=== PATIENT | female | born 1970 | race Caucasian/White ===

== ENCOUNTER 2019-10-23 04:16 | Emergency (ER) | payer OTHER, SELFPAY ==
--- NOTE | ~2019-10-23 | XR_ITS ---
EXAMINATION: XR chest 1V portable EXAM DATE: 10/23/2019 04:57 INDICATION: Short of breath. TECHNIQUE: Portable AP frontal chest x-ray was obtained. Comparison is made to prior examination from 02/08/2017. FINDINGS: The lungs are clear. There are no pleural effusions. The cardiomediastinal silhouette is within normal limits. There is no pneumothorax suspected. The bones and soft tissues are unremarkab le. IMPRESSION: Normal chest x-ray exam. Reviewed, dictated and finalized at location A. IMPRESSION: Normal chest x-ray exam.
[2019-10-23 05:03] LABS: Basophils Percent Auto 0.5 % (0.2-1.2); Eosinophils Absolute Auto 0.1 K/mm3 (0-0.3); Eosinophils Percent Auto 2.3 % (0-4.4); Hemoglobin 12.4 g/dL (12.0-15.0); Immature Granulocyte Absolute 0.01 K/mm3 (0.00-0.031); Immature Granulocyte Percent A 0.2 % (0-0.5); Lymphocytes Absolute Auto 1.34 K/mm3 (0.9-3.2); Lymphocytes Percent Auto 22.1 % (18.3-44.2); Mean Corpuscular HGB Conc 31.8 g/dl (32-36); Mean Corpuscular Hemoglobin 28.4 pg (26-34); Mean Corpuscular Volume 89.4 fl (80-100); Mean Platelet Volume 9.2 fl (7.4-10.4); Monocytes Absolute Auto 0.6 K/mm3 (0.1-0.6); Monocytes Percent Auto 9.1 % (2.6-8.5); Neutrophils Percent Auto 65.8 % (45.5-73.1); Platelet Count Result 240 k/mm3 (150-375); Red Blood Count 4.36 M/mm3 (4.2-5.4); Red Cell Distribution Width 14.2 % (11.5-14.5); White Blood Count 6.1 K/mm3 (4.5-10.0)
[2019-10-23 05:16] LABS: Anion Gap 5 mmol/L (8-16); Blood Urea Nitrogen 13 mg/dL (7-17); Carbon Dioxide 31 mmol/L (22-30); Chloride 99 mmol/L (98-107); Estimated CRCL calculation 81 ml/min; Estimated Glomerular Filt Rate > 60; Glucose 130 mg/dL (65-105); Potassium 4.3 mmol/L (3.4-5.0); Sodium 135 mmol/L (137-145)
[2019-10-23] MEDS: CLINDAMYCIN 600 MG/NS 50 ML 600 MG/50 ML PIGGYBACK 100 MG IVPB (05:27)
--- NOTE | 2019-10-23 05:32 | ED.SOB ---
HPI - SOB/Dyspnea General Chief Complaint: Shortness of Breath/Dyspnea Stated Complaint: HARD TO BREATHE; SHOULDER BLADE PAINS Time Seen by Provider: 10/23/19 04:32 Source: patient Mode of arrival: ambulatory Limitations: no limitations History of Present Illness HPI Narrative: 49-year-old IV heroin user here with complaints of shortness of breath, pain between the shoulder blade occasionally. Also complains of abscess on the left thigh for past 1 week. She denies any fever or chills. She states that she smokes about a pack of cigarettes a day. Patient also mentions that she had been through detox and rehab program but she relapsed several times and started interested anymore. MD elicited complaint: shortness of breath and chest pain Onset (ago): week(s) (1) Timing: constant Severity: mild Exacerbating factors: nothing Known history of: COPD Treatment prior to arrival: none Related Data Home oxygen amount: none Allergies Allergy/AdvReac Type Severity Reaction Status Date / Time No Known Allergies Allergy Unverified 09/30/15 07:12 Review of Systems Review of Systems: All systems reviewed & are unremarkable except as noted in HPI and below Constitutional: Constitutional: Reports no additional constitutional complaints Eyes: Eyes: Reports no additional eye complaints ENT: Reports as per HPI Cardiovascular: Cardiovascular: Reports no additional cardiovascular complaints Respiratory: Respiratory: Reports no additional respiratory complaints Gastrointestinal: Gastrointestinal: Reports no additional gastrointestinal complaints Musculoskeletal: Musculoskeletal: Reports no additional musculoskeletal complaints Exam Narrative: Exam Narrative: GENERAL: Well-appearing, well-nourished, and in no acute distress. HEAD: Normocephalic, atraumatic. EYES: PERRLA and EOMI. ENT: Nares clear, no rhinorrhea or epistaxis. Mucous membranes moist. NECK: Supple. CHEST: Clear to auscultation. No respiratory distress. HEART: Regular rate and rhythm. No murmur heard. . ABDOMEN: Soft, nontender, nondistended, normal active bowel sounds. EXTREMITIES: Normal range of motion. No edema. has abscess on the left thigh about 4 cms with surrounding erythema SKIN: Warm, dry, no rash. NEURO: No focal deficits. Alert and oriented x3. PSYCH: Normal mood and affect. Procedures Abscess I/D lower extremity: Date of Incision: 10/23/19 Time of Incision: 05:15 Side (if applicable): left Technique: incised with #11 blade Amount of fluid expressed (mL): 10 Irrigation: No Packing used?: none MDM - SOB/Dyspnea Lab Data Result diagrams: 10/23/19 04:56 10/23/19 04:57 Labs: Lab Results 10/23/19 10/23/19 Range/Units 04:56 04:57 WBC 6.1 (4.5-10.0) K/mm3 RBC 4.36 (4.2-5.4) M/mm3 Hgb 12.4 (12.0-15.0) g/dL Hct 39.0 (37.0-47.0) % MCV 89.4 (80-100) fl MCH 28.4 (26-34) pg MCHC 31.8 L (32-36) g/dl RDW 14.2 (11.5-14.5) % Plt Count 240 (150-375) k/mm3 MPV 9.2 (7.4-10.4) fl Immature Gran % (Auto) 0.2 (0-0.5) % Neut % (Auto) 65.8 (45.5-73.1) % Lymph % (Auto) 22.1 (18.3-44.2) % [place] % (Auto) 9.1 H (2.6-8.5) % Eos % (Auto) 2.3 (0-4.4) % Baso % (Auto) 0.5 (0.2-1.2) % Lymph # (Auto) 1.34 (0.9-3.2) K/mm3 [place] # (Auto) 0.6 (0.1-0.6) K/mm3 Eos # (Auto) 0.1 (0-0.3) K/mm3 Baso # (Auto) 0.0 (0.0-0.1) K/mm3 Abs Immat Gran (auto) 0.01 (0.00-0.031) K/mm3 Absolute Neuts (auto) 4.0 (1.3-6.7) K/mm3 Absolute Nucleated RBC 0.0 (0.0-0.012) K/mm3 Nucleated RBC % 0.0 (0.0-0.2) % Sodium 135 L (137-145) mmol/L Potassium 4.3 (3.4-5.0) mmol/L Chloride 99 (98-107) mmol/L Carbon Dioxide 31 H (22-30) mmol/L Anion Gap 5 L (8-16) mmol/L BUN 13 (7-17) mg/dL Creatinine 0.70 (0.7-1.0) mg/dL Estim Creat Clear Calc 81 ml/min Estimated GFR > 60 (59 - ) Glucose 130 H (65-105) mg/dL
--- NOTE | 2019-10-23 09:37 | ECG_ITS ---
Measurements Intervals [place] Rate: 86 P: 53 VT: 181 QRS: -30 QRSD: 98 T: 46 QT: 355 QTc: 427 Interpretive Statements SINUS RHYTHM INCOMPLETE RIGHT BUNDLE BRANCH BLOCK BORDERLINE ECG Electronically Signed On 10-23-2019 9:43:36 CDT by Calvin Garcia D.O.
== END 2019-10-23 06:09 | disposition home or self-care (01) ==
PROVIDERS: Emergency Provider Family Medicine
DX: L02.416 Cutaneous abscess of left lower limb (principal); F11.90 Opioid use, unspecified, uncomplicated; R07.9 Chest pain, unspecified; F17.210 Nicotine dependence, cigarettes, uncomplicated
CPT/HCPCS: 10060; 36415; 71045; 80048; 85025; 93005; 96374; 99284

== ENCOUNTER 2023-04-27 07:29 | Outpatient (CLI) | payer OTHER, SELFPAY ==
--- NOTE | 2023-04-27 | ECG_ITS ---
Measurements Intervals [place] Rate: 85 P: 58 VT: 195 QRS: -24 QRSD: 110 T: 39 QT: 363 QTc: 434 Interpretive Statements SINUS RHYTHM NORMAL ECG COMPARED TO ECG 10/23/2019 04:34:06 NO SIGNIFICANT CHANGES Electronically Signed On 04-27-2023 8:47:51 CDT by Calvin Garcia D.O.
--- NOTE | 2023-04-27 | ECHO_ITS ---
Patient Info Name: Emily Temple Age: 52 years : 1970 Gender: Female Ht: 67 in Wt: 214 lbs BSA: 2.18 m2 HR: 92 bpm BP: 168 / 117 mmHg Heart Rhythm: Sinus Rhythm Technical Quality: Fair Exam Date: 04/27/2023 7:57 AM Exam Location: Echo Lab Patient Status: Outpatient Admit Date: 04/27/2023 Staff Ordering Physician: Paulo Lyons MD Chief Optometry Service: Attending Provider: Paulo Lyons MD Referring Physician: Serena LUNA; Exam Type: CA echo doppler color flow Study Info Indications R07.9 - Chest pain, unspecified Complete two-dimensional, color flow and Doppler transthoracic echocardiogram is performed. Summary 1. Complete two-dimensional, color flow and Doppler transthoracic echocardiogram is performed. 2. Left ventricular chamber dimension is normal. 3. Left ventricular systolic function is normal, estimated at 55-60%. 4. The left ventricular diastolic function is grade I diastolic dysfunction. 5. Right ventricular systolic function is normal. 6. No significant valvular disease. Left Ventricle Left ventricular chamber dimension is normal. Left ventricular systolic function is normal, estimated at 55-60%. There is no increased left ventricular wall thickness. The left ventricular diastolic function is grade I diastolic dysfunction. Right Ventricle Right ventricular chamber dimension is normal. Right ventricular systolic function is normal. Left Atria Left atrial chamber dimension is normal. Right Atria Right atrial chamber dimension is normal. Atrial Septum Intact interatrial septum visualized by color flow imaging. Aortic Valve The aortic valve is probable trileaflet. There is no aortic valve stenosis. There is no aortic valve regurgitation. There is mild aortic valve calcification. Pulmonic Valve The pulmonic valve is not well visualized. Mitral Valve There is trace mitral valve regurgitation. Tricuspid Valve There is trace tricuspid valve regurgitation. Pericardium/Pleural There is no pericardial effusion. Inferior Vena Cava Normal inferior vena cava with >50% collapse upon inspiration consistent with normal right atrial pressure, 3 mmHg. Aorta The aortic root size at the sinus of Valsalva is normal. Left Ventricular Outflow Tract Name Value Normal LVOT 2D LVOT Diameter 2.0 cm LVOT Doppler LVOT Peak Gradient 5 mmHg LVOT Mean Gradient 3 mmHg LVOT VTI 23 cm LVOT VTI/AV VTI Ratio 0.7 LVOT Stroke Volume 68 ml LVOT CO 5.9 l/min LVOT CI 2.7 l/min/m2 Pulmonic Valve Name Value Normal PV Doppler PV Peak Gradient 4 mmHg Mitral Valve Name Value Normal
--- NOTE | ~2023-04-27 | XR_ITS ---
Clinical Indication: Chest pain PA and lateral views of the chest: Comparison: 10/23/2019 Findings: The lungs are clear, without evidence of focal consolidation or pleural effusion. Cardiome diastinal silhouette is within normal limits. Bones and soft tissues are unremarkable. Impression: Normal chest. Reviewed, dictated and finalized at location . Impression: Normal chest.
== END 2023-04-27 07:30 | disposition home or self-care (01) ==
PROVIDERS: Visit Provider Internal Medicine
DX: R07.9 Chest pain, unspecified (principal); R06.09 Other forms of dyspnea
CPT/HCPCS: 71046; 93005; 93306

== ENCOUNTER 2024-06-09 00:03 | Emergency (ER) | payer OTHER, SELFPAY ==
[2024-06-09] VITALS (9 sets, daily range): BP systolic 138–147; BP diastolic 84–89; PULSE 76–108; RESP 12–26; TEMP 36.1; O2SAT 94–99
--- NOTE | ~2024-06-09 | CT_ITS ---
CTA chest PE abdomen pel Ordering provider: Arsen Monsivais MD History: . chest pain, abdominal pain, eval PE . Comparison: None. Technique: CT angiogram chest was performed following timed intravenous injection of contrast. Thin s lice axial images and reformatted coronal images were obtained. Three dimensional reformatted images of the chest were also obtained using a [employer] workstation. Also, CT of the abdomen and pelvis was pe rformed with IV contrast. . Automated exposure control and iterative reconstruction technique were e mployed. The dose-length product was 2134.44 mGy-cm. 100 mL Omnipaque 350 was given IV. FINDINGS: CHEST: --PULMONARY ARTERIES: No pulmonary embolus. --VISUALIZED THORACIC INLET: Normal. --MEDIASTINUM: Aorta/coronary arteries: The thoracic aorta is normal. Heart/other: The heart is not enlarged. Lymph nodes: No mediastinal or hilar adenopathy. --LUNGS: No pulmonary nodules or masses. No infiltrates or effusions. No pneumothorax. --MUSCULOSKELETAL: Bones: Age appropriate degenerative changes of the spine. Old healed fracture in the right hemithorax is noted. Superficial soft tissues: The superficial soft tissues are normal. ABDOMEN/PELVIS: --MUSCULOSKELETAL: Superficial soft tissues: The superficial soft tissues are normal. Bones: Age appropriate degenerative changes of the spine. --UPPER ABDOMINAL ORGANS: Liver: Borderline hepatomegaly. Gallbladder: Status post cholecystectomy. Slightly prominent CBD. Spleen: Normal. Stomach/duodenum: Normal. Pancreas: Normal. Adrenals: Normal. Kidneys: lobation is seen bilaterally. --PELVIC ORGANS: The bladder is underfilled. No bladder stones. --BOWEL AND MESENTERY: Colon: No evidence of diverticulitis. Normal appendix. Small Bowel: Normal. No obstruction. Peritoneum/mesentery: No free air or free fluid. No mesenteric lymphadenopathy. --RETROPERITONEUM: Mild atheromatous disease of the abdominal aorta. No retroperitoneal lymphadenop athy. IMPRESSION: CHEST: 1. No pulmonary embolism. 2. No acute cardiopulmonary pathology. ABDOMEN/PELVIS: 1. No evidence of appendicitis, diverticulitis or intestinal obstruction. Reviewed, dictated and finalized at location A.
--- NOTE | ~2024-06-09 | XR_ITS ---
XR chest 2V Ordering provider: Arsen Monsivais MD History: 54 years Female with . SOB, chest pain . Comparison: None. FINDINGS: MEDIASTINUM: The cardiac silhouette is not enlarged. LUNGS: No , effusions or pneumothorax. Small opacity in the left lung base medially is seen which may indicate focal pneumonia. Follow-up ad vised. OTHER: No free air under the diaphragm. IMPRESSION: Possible focal pneumonia in the left lung base medially. Follow-up and clinical correlation advised. Reviewed, dictated and finalized at location A.
--- NOTE | 2024-06-09 00:05 | ECG_ITS ---
Test Date: 2024-06-09 00:21:53 Measurements Intervals [place] Rate: 93 P: 63 DE: 180 QRS: -59 QRSD: 92 T: 65 QT: 341 QTc: 424 Interpretive Statements SINUS RHYTHM PATTERN CONSISTENT WITH PULMONARY DISEASE INCOMPLETE RIGHT BUNDLE BRANCH BLOCK [90+ ms QRS DURATION, TERMINAL R IN V1/V2, 40+ ms S IN I/aVL/V4/V5/V6] LEFT ANTERIOR FASCICULAR BLOCK [QRS AXIS <= -45, QR IN I, RS IN II] POSSIBLE SEPTAL MYOCARDIAL INFARCTION , OF INDETERMINATE AGE [30 ms Q WAVE IN V1/V2] No previous ECG available for comparison Electronically Signed On 06-09-2024 16:04:26 CDT by Wesley Wren
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
--- OUTSIDE RECORDS SUMMARY | 2024-06-09 00:06 | XMS_ITS | CONTINUITY OF CARE DOCUMENT ---
Author Name sera zamora Address Unknown Organization [facility] Address [address] [place] [address] Phone [phone] Care Team Providers Care Early Childhood Special Educator Name Role Phone Clinton BLAKELY, Mango Unavailable [phone] OZIEL EDUARDO MD Unavailable [phone] OZIEL EDUARDO MD Unavailable [phone] PROBLEMS Condition Status Date Provider Notes SHORTNESS OF BREATH active Luciano Pires CHEST PAIN-TYPE TO BE DETERMINED active ? Bernardo Alonzo MD OBESITY active ? Mango Alonzo MD SHORTNESS OF BREATH active ? Mango Greenberg TOBACCO ABUSE active ? Mango Alonzo MD COPD active Mango Alonzo MD BIPOLAR AFFECTIVE DISORDER active Mango Alonzo MD ENCOUNTERS Date Type Provider Location Encounter Diag nosis - In-person encounter Office Visit Mango Alonzo MD [place] [facility] - In-person encounter Office Visit Mango Alonzo MD [place] [facility] CHEST PAIN-TYPE TO BE DETERMINEDOBESITYSHORTNESS OF BREATHTOBACCO ABUSECOPDBIPOLAR AFFECTIVE DISORDER VITAL SIGNS Date Observation Value Provider Body Mass Index (Ratio) 33.32 kg/m2 Martha Rodríguez blood pressure, diastolic 72 mm[Hg] Me traci Rodríguez blood pressure, systolic 134 mm[Hg] Kathy Rodríguez pulse rate 88 /min Audrey Rodríguez oxygen saturation, oximetry 98 % Audrey Rodríguez respiratory rate E&M 16 /min Audrey Rodríguez weight E&M 212 [lb_av] Audrey Rodríguez height E&M 67 [in_i] Audrey Rodríguez ALLERGIES No Known Drug Allergies RESULTS Date Observation Value Provider Reference Range Interpretation Location platelet count 234 10*3/mm3 [facility] hematocrit, blood 37.0 % [facility] triglyceride, serum, fasting 328 mg/dL [facility] HDL cholesterol, serum 33 mg/dL [facility] lipoprotein, beta, serum, point, quantitative, calculated 57 mg/dL [facility] cholesterol, serum 156 mg/dL [facility] international normalized ratio (INR) 1.0 [facility] thyroid stimulating hormone, serum 0.528 u[IU]/mL [facility] alanine aminotransferase (SGPT), serum 32 1/L [facility] aspartate aminotransferase (SGOT), serum 22 1/L [facility] creatinine, serum 0.77 mg/dL [facility] potassium, serum 4.3 mmol/L [facility] sodium, serum 137 mmol/L [facility] HISTORY OF MEDICATION USE Medication Status Instructions Dates Provider Indications Com ments CARDIZEM 120 MG ORAL TABLET active Use 1 tablet daily. 1 Mango Alonzo MD NITROSTAT 0.4 MG SUBLINGUAL TABLET SUBLINGUAL active One tab. under tongue as needed. May repeat twice in 10 minutes. 0 Mango Alonzo MD FLUOXETINE HCL 40 MG ORAL CAPSULE active TAKE ONE CAPSULE BY MOUTH DAILY. Michael Zhu TRIHEXYPHENIDYL HCL 2 MG ORAL TABLET active TAKE TWO TABS BY MOUTH THREE TIMES DAILY. Michael Zhu TRAZODONE HCL 100 MG ORAL TABLET active TAKE THREE TABS BY MOUTH AT BEDTIME Michael Zhu CHLORPROMAZINE HCL 100 MG ORAL TABLET active TAKE 1 TAB BY MOUTH FOUR TIMES DAILY. Michael Zhu SOCIAL HISTORY Date Observation Value Provider smoking/tobacco cess ation, patient education and counseling yes Mango Alonzo MD social history E&M Marital Statu s: Single E thnicity: Mango Alonzo MD social history reviewed E&M reviewed Mango Alonzo MD smoking history, tot al pack/year 33 Audrey Rodríguez drug use no Leonard Watkins RN passive cigarette sm ileana exposure yes Leonard Watkins RN smoking history, tot al pack/day 1 Leonard Watkins RN smoking history, tot al pack/year 33 Leonard Watkins RN cigarette use yes Leonard Watkins RN smoking, date started 1980 Davis kumar RN social history E&M Marital Status: Single Leonard Watkins RN caffeine use, averag e drinks per day yes Leonard Watkins RN alcohol use, average drinks per day social Leonard Watkins RN smoking status current every day smoker J hernando June NOVA social history reviewed E&M reviewed Leonard Watkins RN MENTAL STATUS Date Observation Value Provider assessment of judgme nt and insight E&M Alert and oriented to time, place and person. Mood and affect are normal. Mango Alonzo MD assessment of judgme nt and insight E&M Alert and oriented to time, place and person. Mood and affect are normal. Leonard Watkins RN INSURANCE PROVIDERS Payer name Policy type / Coverage type Rita red libertarian [employer] MEDICAID (2) Medicaid [id number] TREATMENT PLAN Date Name Cardiac Cath - L/R - GC TSH, 3RD GENERATION W/REFLEX TO FT4 HEMOGLOBIN A1c PROTHROMBIN TIME WIT H INR CBC (H/H, RBC, INDIC ES, WBC, PLT) LIPID PANEL COMPREHENSIVE METABO LIC PANEL W/EGFR Full PFT Complete Echo HISTORY OF PROCEDURES Procedure Date Procedure Name Provider Procedure Notes S tatus EDITH Alonzo MD complet ed DLCO - 40980 Mango Alonzo MD compl eted FRC - 37123 Mango Alonzo MD comple cony FVC - 32098 Mango Alonzo MD comple cony EDITH Alonzo MD complet ed
--- OUTSIDE RECORDS SUMMARY | 2024-06-09 00:06 | XMS_ITS | Clinical Summary ---
Author Organization [facility] Address [address] [place] [address] Phone Care Team Providers Care Janitor Head Name Role Phone Nikolay Gama MD Primary Care Provider [phone] Allergies No known active allergies Medications FLUoxetine (PROZAC) 40 MG CapsuleIndicat ions:Depressio n Take 40 mg by mouth daily. Active chlorproMAZINE (THORAZINE) 100 MG Tablet chlorpromazine 100 mg tablet Active famotidine (PEPCID) 40 MG Tablet famotidine 40 mg tablet Active gabapentin (NEURONTIN) 400 MG Capsule gabapentin 400 mg capsule Active hydrOXYzine (VISTARIL) 50 MG Capsule hydroxyzine pamoate 50 mg capsule Active albuterol (PROAIR HFA) 108 (90 Base) MCG/ACT Aerosol Solution ProAir HFA 90 mcg/actuation aerosol inhaler Active cyclobenzaprin e (FLEXERIL) 10 MG Tablet Take 1 tablet nightly as needed for pain or spasms. 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 Pulse 86 12/11/2017 2:55 PM ASSOCIATE TRAINER Temperature 36.8 C (98.2 F) 12/11/2017 2:55 PM ASSOCIATE TRAINER Respiratory Rate - - Oxygen Saturation 97% 12/11/2017 2:55 PM ASSOCIATE TRAINER Inhaled Oxygen Concentration - - Weight - - Height - - Body Mass Index - - Plan of Treatment Health Maintenance Due Date Last Done Comments Hepatitis C Virus (HCV) Screening 1970 TdaP Immunization 1970 Hepatitis B Immunization (1 of 3 - 19+ 3-dose series) 1988 Colonoscopy 2014 Colorectal Cancer Screening 2014 Cologuard 05/27/2019 Immunochemical Fecal Occult Blood 05/27/2019 Pneumococcal Immunization (5 0+ years) (1 of 1 - PCV) 05/27/2019 Zoster Immunization (1 of 2) 05/27/2019 Influenza Immunization (#1) 10/08/202306/2016, 12/29/2014 SARS-COV-2 Immunization (1 - season) 2023 Respiratory Syncytial Virus (RSV) Immunization (Adult) (1 - 1-dose 75+ series) 2044 Meningococcal Immunization (ACWY) Aged Out No longer eligible b ased on patient's age to complete this topic Rotavirus Immunization Aged Out No lo nger eligible based on patient's age to complete this topic Insurance MEDICAID [employer] Care Teams Janitor Head Relationship Specialty Start Date End Date Nikolay Gama MD [address] [place] [address] PCP - General Geriatric Medicine 11/13/17
--- OUTSIDE RECORDS SUMMARY | 2024-06-09 00:06 | XMS_ITS | Patient Health Record ---
Author Organization [facility] Address [address] [place] [address] Care Team Providers Care Coating Mixer Supervisor Name Role Phone Paulo Lyons Primary Care Provider [facility], [facility] Unavailable U Lashawn Valderrama Unavailable [phone] Do Garrido Unavailable [phone] Allergies No Known Allergies Results Component Value Reference Range Notes Rapid Plasma Reagin (RPR) Te st With Reflex to Quantitative RPR and Confirmatory Treponema pallidum Antibodies Reviewed date:04/24/2024 11:56:22 AM Interpretation: Performing Lab:[facility], [employer] [facility], Phone - [phone], Director - [facility] Notes/Report: RPR Non Reactive Non Reactive HIV Screen *HIV 1, 2 Ab, p24 Ag ([id number]) Reviewed date:04/24/2024 11:56:22 AM Interpretation: Performing Lab:[facility], [employer], Phone - [phone], [facility] - [email or web address] Notes/Report: HIV Ab/p24 Ag Screen Non Reactive Non Reactive HIV-1/HIV-2 antibodies and HIV-1 p24 antigen were NOT detected. There is no laboratory evidence of HIV infection. HIV Negative Chlamydia/Gonococcus/Mycopla sma genitalium, ELXI, Urine Reviewed date:04/24/2024 11:56:22 AM Interpretation: Performing Lab:[facility], [facility] [facility], Phone - [phone], Director - [facility] Notes/Report: Mycoplasma genitalium LEXI Negative Negative Chlamydia trachomatis, LEXI Negative Negative Neisseria gonorrhoeae, LEXI Negative Negative Hepatitis B Surface Antigen (HBsAg Screen) Reviewed date:04/24/2024 11:56:22 AM Interpretation: Performing Lab:[address], Phone - [phone], Director - [facility] Notes/Report: HBsAg Screen Negative Negative Hepatitis C Virus Antibody w /Rflx to Quantitative Real-time PCR ([id number]) Reviewed date:04/24/2024 11:56:22 AM Interpretation: Performing Lab:[address], Phone - [phone], Director - [facility] Notes/Report: HCV Ab Reactive Non Reactive Hepatitis C Quantitation 4340 HCV log10 3.637 Test Information: The quanti tative range of this assay is 15 IU/mL to 100 million IU/mL. Interpretation: consistent with active infection. Positive HCV antibody screen with the presence of HCV RNA is UA/M w/rflx Culture, Routine Reviewed date:04/24/2024 11:56:22 AM Interpretation: Performing Lab:[address], Phone - [phone], Director - [facility] Notes/Report: Specific Vidal 1.020 1.005-1.030 pH 5.5 5.0-7.5 Urine-Color Yellow Yellow Appearance Clear Clear WBC Esterase Negative Negative Protein Negative Negative/Trace Glucose Negative Negative Ketones Negative Negative Occult Blood Negative Negative Bilirubin Negative Negative Urobilinogen,Semi-Qn 0.2 0.2-1.0 mg/dL Nitrite, Urine Negative Negative Microscopic Examination Micr oscopic follows if indicated. Microscopic Examination See below: Micr oscopic was indicated and was performed. Urinalysis Reflex This speci men will not reflex to a Urine Culture. WBC 0-5 0 - 5 /hpf RBC 0-2 0 - 2 /hpf Epithelial Cells (non renal) 0-10 0 - 10 /hpf Casts None seen None seen /lpf Bacteria Few None seen/Few Iron and TIBC* Reviewed date:04/24/2024 11:56:22 AM Interpretation: Performing Lab:[facility], [address] [place] [address], Phone - [phone], Director - [facility] Notes/Report: Iron Bind.Cap.(TIBC) 318 250-450 ug/dL UIBC 234 131-425 ug/dL Iron 84 27-159 ug/dL Iron Saturation 26 15-55 % Vitamin B12 and Folate Reviewed date:04/24/2024 11:56:22 AM Interpretation: Performing Lab:[facility] [address], Phone - [phone], Director - [facility] Notes/Report: Vitamin B12 630 879-9928 pg/mL Folate (Folic Acid), Serum 8.1 >3.0 ng/mL A serum folate concentration of less than 3.1 ng/mL is considered to represent clinical deficiency. TSH Rfx on Abnormal to Free T4 Reviewed date:04/24/2024 11:56:22 AM Interpretation: Performing Lab:[facility] [address], Phone - [phone], Director - [facility] Notes/Report: TSH 1.700 0.450-4.500 uIU/mL CBC With Differential/Platel et* Reviewed date:04/24/2024 11:56:22 AM Interpretation: Performing Lab:[facility] [place], [address] [place] [address], Phone - [phone], Director - [facility] Notes/Report: WBC 7.6 3.4-10.8 x10E3/uL RBC 4.18 3.77-5.28 x10E6/uL Hemoglobin 11.8 11.1-15.9 g/dL Hematocrit 36.3 34.0-46.6 % MCV 87 79-97 fL MCH 28.2 26.6-33.0 pg MCHC 32.5 31.5-35.7 g/dL RDW 12.7 11.7-15.4 % Platelets 242 150-450 x10E3/uL Neutrophils 70 Not Estab. % Lymphs 21 Not Estab. % Monocytes 6 Not Estab. % Eos 3 Not Estab. % Basos 0 Not Estab. % Neutrophils (Absolute) 5.3 1.4-7.0 x10E3/uL Lymphs (Absolute) 1.6 0.7-3.1 x10E3/uL Monocytes(Absolute) 0.5 0.1-0.9 x10E3/uL Eos (Absolute) 0.2 0.0-0.4 x10E3/uL Baso (Absolute) 0.0 0.0-0.2 x10E3/uL Immature Granulocytes 0 Not Estab. % Immature Grans (Abs) 0.0 0.0-0.1 x10E3/uL C-Reactive Protein, Quant Reviewed date:04/24/2024 11:56:22 AM Interpretation: Performing Lab:[facility], Phone - [phone], Director - [facility] Notes/Report: C-Reactive Protein, Quant 4 0-10 mg/L Hemoglobin A1c* Reviewed date:04/24/2024 11:56:22 AM Interpretation: Performing Lab:[address], Phone - [phone], Director - [facility] Notes/Report: Hemoglobin A1c 5.5 4.8-5.6 % . Prediabetes: 5.7 - 6.4 Diabetes: >6.4 Glycemic control for adults with diabetes: <7.0 Lipid Panel* Reviewed date:04/24/2024 11:56:22 AM Interpretation: Performing Lab:[facility], Phone - [phone], Director - [facility] Notes/Report: Cholesterol, Total 144 100-199 mg/dL Triglycerides 102 0-149 mg/dL HDL Cholesterol 44 >39 mg/dL VLDL Cholesterol Amrit 19 5-40 mg/dL LDL Chol Calc (NIH) 81 0-99 mg/dL CMP 14 Comprehensive Metabol ic Panel* Reviewed date:05/13/2024 03:05:17 PM Interpretation: Performing Lab:[facility], Phone - [phone], Director - [facility] Notes/Report: Test(s) 934483-Yqfgmaxik C Genotype was developed and its performance characteristics determined by [facility]. It has not been cleared or approved by the Food and Drug Administration. Glucose 102 70-99 mg/dL BUN 21 6-24 mg/dL Creatinine 0.97 0.57-1.00 mg/dL eGFR 69 >59 mL/min/1.73 BUN/Creatinine Ratio 22 9-23 Sodium 137 134-144 mmol/L Potassium 4.6 3.5-5.2 mmol/L Chloride 102 96-106 mmol/L Carbon Dioxide, Total 23 20-29 mmol/L Calcium 9.0 8.7-10.2 mg/dL Protein, Total 7.5 6.0-8.5 g/dL Albumin 4.2 3.8-4.9 g/dL Globulin, Total 3.3 1.5-4.5 g/dL Bilirubin, Total 0.2 0.0-1.2 mg/dL Alkaline Phosphatase 126 44-121 IU/L AST (SGOT) 208 0-40 IU/L ALT (SGPT) 419 0-32 IU/L 12 Panel Urine Drug Screen Reviewed date:05/09/2024 02:17:21 PM Interpretation: Performing Lab: Notes/Report: THC pos LAYLA neg MOP (OPI) neg AMP pos MET pos BAR neg BZO neg MDMA neg MTD neg OXY neg PCP neg BUP neg 12 Panel Urine Drug Screen Reviewed date:04/01/2024 02:20:39 PM Interpretation: Performing Lab: Notes/Report: THC neg LAYLA neg MOP (OPI) neg AMP POS MET POS BAR neg BZO neg MDMA neg MTD neg OXY neg PCP neg BUP neg HCV RNA by PCR, Qn Rfx Lori Reviewed date:05/13/2024 03:05:37 PM Interpretation: Performing Lab:[facility], [address] [facility], Phone - [phone], Director - [facility] Notes/Report: Test(s) 383722-Dfygwvgmq C Genotype was developed and its performance characteristics determined by [employer]. It has not been cleared or approved by the Food and Drug Administration. Test(s) 045221-Uaeufpndh C Genotype was developed and its performance characteristics determined by [employer]. It has not been cleared or approved by the Food and Drug Administration. Hepatitis C Quantitation [id number] HCV log10 5.744 Test Information: The quanti tative range of this assay is 15 IU/mL to 100 million IU/mL. HCV Genotype To be performed on this specimen. Hepatitis C Genotype 1a MRSA Screening Culture Reviewed date:07/27/2023 12:45:14 PM Interpretation: Performing Lab:[facility], [address] [facility], Phone - [phone], Director - [facility] Notes/Report: Clinical Information:SRC:NASAL NASAL MRSA Screening Culture Negative Reason For Referral Reason evaluate and tx hepa titis c, prefers erie Diagnosis 1 Hepatitis C (B19.20) Referral Organization [facility] Referring Provider First Name Paulo Referring Provider Last Name Serena Referring Provider Speciality Internal M edicine Referred Provider Specialty Gastroentero logy General Notes AVTAR Rees, Gayle Moss 05/30/2024 11:56:25 AM >Referral to [facility] GI Letter to pt. Clinical Notes [facility], [address], [address], [facility] [address], , Referral Priority Routine Reason treatments and low i mpact exercise program for chronic musculoskeletal pain Diagnosis 1 Dorsalgia of lumbosa cral region (M54.50) Referral Organization [facility] Referring Provider First Name Paulo Referring Provider Last Name Serena Referring Provider Speciality Internal M edicine Referred Provider Specialty Physical The rapist General Notes Lety Jordan 05/07 01:50:48 PM > Referral has been sent to [facility]. Letter to patient. Clinical Notes [facility] nter, [address] [facility], [address], ph: [phone], fax. [phone] Referral Priority Routine Medications Medication SIG (Take, Route, Frequency, Duration) Notes Start Date End Date Status DULoxetine HCl 60 MG 1 capsule Orally On ce a day for 30 days Total of 90mg daily. 05/14/2024 Active Naproxen 500 MG 1 tablet with food o r milk as needed Orally every 12 hrs for 30 days Active Butrans 7.5 MCG/HR 1 patch to skin Transdermal weekly for 28 days 06/03/2024 Active Ventolin HFA 108 (90 Base) MCG/ACT 2 Puff as needed Inhalation every 4 hrs As needed dyspnea Active QUEtiapine Fumarate 300 MG TAKE 1 TABLET BY MOUTH AT BEDTIME for 30 days Active DULoxetine HCl 30 MG 1 capsule Orally On ce a day for 30 days Active hydrOXYzine HCl 50 MG 1 tablet as needed Orally three times a day for 30 days Active lamoTRIgine 25 MG 2 tablets Orally daily for 30 days Active Immunizations Vaccine Route Administration Date Status Comme nts FLU VAC NO PRSV 4VAL 6 mo+ IM Intramuscular 12/02/2019 Administered [employer] Pt. tolerated injection well. Voiced no questions or concerns. VIS 09/20/2018 FLU VAC NO PRSV 4VAL 6 mo+ IM Intramuscular 12/21/2021 Administered Pt tolerated injection well. Pt voiced no questions or concerns Social History Tobacco Use: Social History Observation Description Date Details (start date - stop date) Current Smoker NA - NA Sex Assigned At : Social History Observation Description Sex Assigned At Female Alcohol Screen (Audit-C) Question Answer Notes Did you have a drink containing alcohol in the p ast year? Yes Tobacco Control (Standard) Question Answer Notes Tobacco use: Current smoker How often do you smoke cigarettes? Every day How many cigarettes a day do you smoke? 11-20 How soon after you wake up do you smoke your fir st cigarette? 6-30 minutes Are you interested in quitting? Not ready to cortney t Problems Problem Type SNOMED Code ICD Code Onset Dates Problem Status W/U Status Risk Notes Problem Vitamin D deficiency (87118806) Vitamin D deficiency, unspecified (E55.9) Active confirmed Problem Tobacco user (614835804) Nicotine dependence, unspecified, uncomplicated (F17.200) Active confirmed Problem Bipolar affective disorder, currently manic, moderate (124175421) Bipolar disorder, current episode manic without psychotic features, moderate (F31.12) 020 Active confirmed Problem 945450972 Chronic tension-type headache, not intractable (G44.229) Active confirmed Problem 915168591 Obesity (E66.9) Active confirmed Problem Insomnia (838872360) Insomnia (G47.00) Active c onfirmed Problem Posttraumatic stress disorder (07669727) PTSD (post-traumatic stress disorder) (F43.10) Active confirmed Problem Anxiety (58238534) Anxiety (F41.9) Active confi rmed Problem Migraine (71450896) Migraine (G43.909) Active confirmed Problem Hepatitis C (66610025) Hepatitis C (B19.20) 022 Active confirmed Problem 515919753 Chemical dependency (F19.20) Active confirmed Problem 744748202 Cervical cancer screening (Z12.4) Active confirmed Problem Bipolar disorder (77365058) Bipolar disorder (F31.9) Active confirmed Problem 686585791 Colon cancer screening (Z12.11) Active confirmed Problem 894865400 Breast cancer screening (Z12.39) Active confirmed Problem Chronic fatigue syndrome (43905903) Chronic fatigue (R53.82) Active confirmed Problem Cocaine abuse (06678114) Cocaine abuse (F14.10) Active confirmed Problem Physical examination , complete (01816573) Physical exam (Z00.00) Active confirmed Problem Opioid dependence (23528748) Opiate dependence (F11.20) Active confirmed Problem Alcohol use disorder (3249779199) Alcohol use disorder (F10.99) Active confirmed Problem Agoraphobia (19359272) Agoraphobia (F40.00) Active confirmed Problem Bipolar disorder (92049847) Bipolar 1 disorder, depressed (F31.9) Active confirmed Problem Methamphetamine abus e (073621320) Methamphetamine abuse (F15.10) Active confirmed Problem Sciatica (65611963) Low back enriqueta n with sciatica, sciatica laterality unspecified, unspecified back pain laterality, unspecified chronicity (M54.40) Active confirmed Problem Swelling of first metatarsophalangeal joint of hallux (708518973) Bunion of great toe of left foot (M21.612) Active confirmed Problem 468008617 Tobacco use disorder (F17.200) Active confirmed Problem Urinary incontinence (163850999) Urinary incontinence in female (R32) Active confirmed Problem Obesity (002332621) Obesity, unspecified classification, unspecified obesity type, unspecified whether serious comorbidity present (E66.9) Active confirmed Problem 8812565 Opioid use disorder (F11.99) Active confirmed Problem 38540564 Occipital neuralgia of left side (M54.81) Active confirmed Vital Signs Heart Rate 95 /min 05/09/2024 Respiratory Rate 16 /min 05/09/2024 Blood pressure diastolic 64 mm Hg 05/09/2024 Oximetry 97 % 05/09/2024 Height 64 in in 05/09/2024 Blood pressure systolic 110 mm Hg 05/09/2024 Weight 224.2 lbs lbs 05/09/2024 BMI 38.48 kg/m2 05/09/2024 Encounters Encounter Location Date Provider Diagnosis [address] [place] [address] 07/20/2023 Paulo Lang L02.92 ; Low b ack pain with sciatica, sciatica laterality unspecified, unspecified back pain laterality, unspecified chronicity M54.40 ; Encounter for screening for malignant neoplasm of colon Z12.11 ; Encounter for screening for malignant neoplasm of cervix Z12.4 and Encounter for screening mammogram for breast cancer Z12.[address] [address] 04/01/2024 Paulo Lyons VEGA (dyspnea on exertion) R06.09 ; Dorsalgia of lumbosacral region M54.50 ; Edema of both feet R60.0 ; Hepatitis C B19.20 ; Bipolar disorder F31.9 ; Opiate dependence F11.20 ; Nicotine dependence, unspecified, uncomplicated F17.200 ; Urinary incontinence in female R32 ; Post-traumatic stress disorder F43.10 ; Alcohol use disorder F10.99 ; Methamphetamine abuse F15.10 ; Cocaine abuse F14.10 ; Fatigue R53.83 ; Screening for diabetes mellitus Z13.1 ; Lipid screening Z13.220 ; Colon cancer screening Z12.11 ; Exposure to potential infection Z20.9 and Breast cancer screening Z12.[address] [address] 04/04/2024 Do Garrido Bipolar 1 disorder, depressed F31.9 ; Agoraphobia F40.00 ; PTSD (post-traumatic stress disorder) F43.10 and Insomnia G47.[address] [address] 05/09/2024 Paulo Lyons Dorsalgia of lumbosacral region M54.50 ; Hepatitis C B19.20 ; Insomnia G47.00 ; Opiate dependence F11.20 and Bipolar 1 disorder, depressed F31.[address] [address] 05/09/2024 Paulo Lyons Colon cancer screeni ng Z12.11 and Hepatitis C B19.[address] [address] 05/14/2024 Do Garrido Agoraphobia F40.00 ; Bipolar 1 disorder, depressed F31.9 ; PTSD (post-traumatic stress disorder) F43.10 and Insomnia G47.[address] [place] [address] 12/19/2023 Paulo Lyons [address] [place] [address] 04/01/2024 Paulo Lyons Dorsalgia of lumbosacral region M54.[address] [address] 04/22/2024 Paulo Lyons Dorsalgia of lumbosacral region M54.50 [facility] [address] [place] [address] [place] [address] 05/13/2024 Paulo Lyons [address] [place] [address] 05/16/2024 Paulo Lyons Dorsalgia of lumbosacral region M54.[address] [place], [place] [address] 05/28/2024 Pauol Lyons Assessments Encounter Date Diagnosis (ICD Code) Assessment Notes Treatment Notes Treatment Clinical Notes Section Notes 05/16/2024 Dorsalgia of lumbosacral region (ICD-10 - M54.50) 05/14/2024 Agoraphobia (ICD-10 - F40.00) 05/09/2024 Dorsalgia of lumbosacral region (ICD-10 - M54.50) 05/09/2024 Colon cancer screening (ICD-10 - Z12.11) 07/20/2023 Low back pain with sciatica, sciatica laterality unspecified, unspecified back pain laterality, unspecified chronicity (ICD-10 - M54.40) 07/20/2023 Boils (ICD-10 - L02.92) 04/01/2024 VEGA (dyspnea on exertion) (ICD-10 - R06.09) 04/01/2024 Dorsalgia of lumbosacral region (ICD-10 - M54.50) 04/01/2024 Dorsalgia of lumbosacral region (ICD-10 - M54.50) 04/04/2024 Agoraphobia (ICD-10 - F40.00) 04/04/2024 Bipolar 1 disorder, depressed (ICD-10 - F31.9) 04/22/2024 Dorsalgia of lumbosacral region (ICD-10 - M54.50) 05/09/2024 Hepatitis C (ICD-10 - B19.20) 04/04/2024 PTSD (post-traumatic stress disorder) (ICD-10 - F43.10) 05/09/2024 Insomnia (ICD-10 - G47.00) 04/01/2024 Edema of both feet (ICD-10 - R60.0) VENOUS INSUFFIENCY VS COR PULMONAE VS CHF. R/O THYROID, RENAL, HEPATIC ISSUES. DISCUSSED LOW SALT DIET, LEGA ELEVATION, INCREASED WATER INTAKE. 07/20/2023 Encounter for screening for malignant neoplasm of colon (ICD-10 - Z12.11) 05/09/2024 Hepatitis C (ICD-10 - B19.20) 05/14/2024 Bipolar 1 disorder, depressed (ICD-10 - F31.9) 05/14/2024 PTSD (post-traumatic stress disorder) (ICD-10 - F43.10) 07/20/2023 Encounter for screening for malignant neoplasm of cervix (ICD-10 - Z12.4) 04/01/2024 Hepatitis C (ICD-10 - B19.20) 04/04/2024 Insomnia (ICD-10 - G47.00) 05/09/2024 Opiate dependence (ICD-10 - F11.20) 05/09/2024 Bipolar 1 disorder, depressed (ICD-10 - F31.9) 04/01/2024 Bipolar disorder (ICD-10 - F31.9) 07/20/2023 Encounter for screening mammogram for breast cancer (ICD-10 - Z12.31) 05/14/2024 Insomnia (ICD-10 - G47.00) 04/01/2024 Opiate dependence (ICD-10 - F11.20) 04/01/2024 Nicotine dependence, unspecified, uncomplicated (ICD-10 - F17.200) DISCUSSED SMOKING CESSATION BUT NOT YET READY TO CONSIDER. 04/01/2024 Urinary incontinence in female (ICD-10 - R32) 04/01/2024 Post-traumatic stress disorder (ICD-10 - F43.10) 04/01/2024 Alcohol use disorder (ICD-10 - F10.99) 04/01/2024 Methamphetamine abuse (ICD-10 - F15.10) 04/01/2024 Cocaine abuse (ICD-10 - F14.10) 04/01/2024 Fatigue (ICD-10 - R53.83) 04/01/2024 Screening for diabetes mellitus (ICD-10 - Z13.1) 04/01/2024 Lipid screening (ICD-10 - Z13.220) 04/01/2024 Colon cancer screening (ICD-10 - Z12.11) 04/01/2024 Exposure to potential infection (ICD-10 - Z20.9) 04/01/2024 Breast cancer screening (ICD-10 - Z12.39) 07/20/2023 Other Learning About the Safe Use of Antibiotics material was discussed. Pt was educated on use of antibiotic medication including dosing, side effects, adverse effects and anticipated response. Pt was also educated on importance of completing full course of treatment as ordered. Patient voiced understanding of all. Plan Of Treatment Future Test Test Name Order Date Low Dose CT: Lung Cancer Screening 04/01 Mammogram Breast - Bilateral Screening with ABUS, diagnostic mammogram/ultrasound, and/or biopsy as clinically indicated 04/01/2024 Next Appt Details Provider Name:Paulo Lyons , 06/11/2024 10:00:00 AM, [address] [place], [address], Insurance Providers Payer Name Payer Address Payer Phone Subscriber Number Group Number Insured Name Patient Relationship to Insured Coverage Start Date Coverage End Date [facility] Attn Claims Department [address] [place] [address] [phone] [id number] Emily Temple Self - patient is the insured 3 [employer] Attn Claims Department [address] [place] [address] [phone] Emily Temple Self - patient is the insured 0 [employer] Attn Claims Department [address] [place] [address]856 [phone] [id number] Emily Temple Self - patient is the insured 0 Medical (General) History Medical History History ICD Code Bipolar disorder, current episode manic without psychotic features, moderate Post-traumatic stress disorder anxiety depression Surgical History Surgery Date(Month/Year) tumors removed off spine gallbladder 3 c-sections 4 laposcopic sugeries for endometrosis L and R carpel tunnel release L and R cubital tunnel release Hospitalization History Reason Date(Month/Year) MH- multiple
[2024-06-09 00:28] LABS: Basophils Absolute Auto 0.1 K/mm3 (0.0-0.1); Basophils Percent Auto 0.5 % (0.2-1.2); Eosinophils Absolute Auto 0.3 K/mm3 (0-0.3); Eosinophils Percent Auto 3.2 % (0-4.4); Hematocrit 46.5 % (37.0-47.0); Hemoglobin 14.5 g/dL (12.0-15.0); Immature Granulocyte Absolute 0.05 K/mm3 (0.00-0.031); Immature Granulocyte Percent A 0.5 % (0-0.5); Lymphocytes Absolute Auto 2.66 K/mm3 (0.9-3.2); Lymphocytes Percent Auto 27.4 % (18.3-44.2); Mean Corpuscular HGB Conc 31.2 g/dl (32-36); Mean Corpuscular Volume 86.6 fl (80-100); Mean Platelet Volume 9.5 fl (7.4-10.4); Monocytes Absolute Auto 0.8 K/mm3 (0.1-0.6); Neutrophils Absolute Auto 5.9 K/mm3 (1.3-6.7); Neutrophils Percent Auto 60.4 % (45.5-73.1); Platelet Count Result 276 k/mm3 (150-375); Red Blood Count 5.37 M/mm3 (4.2-5.4); Red Cell Distribution Width 12.7 % (11.5-14.5); White Blood Count 9.7 K/mm3 (4.5-10.0)
[2024-06-09 00:42] LABS: Alanine Aminotransferase 52 U/L (6-35); Albumin Level 4.8 g/dL (3.5-5.1); Alkaline Phosphatase 99 U/L (38-126); Anion Gap 11 mmol/L (4-12); Aspartate Amino Transferase 34 U/L (14-36); Bilirubin,Total 0.3 mg/dL (0.2-1.3); Blood Urea Nitrogen 37 mg/dL (7-17); Calcium 9.9 mg/dL (8.4-10.2); Carbon Dioxide 26 mmol/L (22-30); Chloride 101 mmol/L (98-107); Estimated CRCL calculation 85 ml/min; Estimated Glomerular Filt Rate > 60; Glucose 110 mg/dL (65-110); Lipase 130 U/L (23-300); Potassium 4.9 mmol/L (3.4-5.0); Sodium 138 mmol/L (137-145)
[2024-06-09 00:43] LABS: Prothrombin Time 12.9 Seconds (11.1-14.7)
[2024-06-09 00:54] LABS: Troponin I < 0.012 ng/mL (0.000-0.034)
--- NOTE | 2024-06-09 03:09 | ECG_ITS ---
Test Date: 2024-06-09 03:15:29 Measurements Intervals [place] Rate: 79 P: 52 MS: 184 QRS: -48 QRSD: 110 T: 67 QT: 373 QTc: 429 Interpretive Statements SINUS RHYTHM PATTERN CONSISTENT WITH PULMONARY DISEASE INCOMPLETE RIGHT BUNDLE BRANCH BLOCK [90+ ms QRS DURATION, TERMINAL R IN V1/V2, 40+ ms S IN I/aVL/V4/V5/V6] LEFT ANTERIOR FASCICULAR BLOCK [QRS AXIS <= -45, QR IN I, RS IN II] SEPTAL MYOCARDIAL INFARCTION , OF INDETERMINATE AGE [40+ ms Q WAVE IN V1/V2] Compared to ECG 06/09/2024 00:21:53 No significant changes Electronically Signed On 06-09-2024 16:04:44 CDT by Wesley Wren
--- OUTSIDE RECORDS SUMMARY | 2024-06-09 03:10 | XMS_ITS | Clinical Summary ---
Author Organization [facility] Address [address] [place] [address] Phone Care Team Providers Care Sign Maker Name Role Phone Nikolay Gama MD Primary Care Provider [phone] Allergies No known active allergies Medications FLUoxetine [...] Comments Blood Pressure 151/87 12/11/2017 2:55 PM PUBLIC HEALTH REPRESENTATIVE Pulse 86 12/11/2017 2:55 PM PUBLIC HEALTH REPRESENTATIVE Temperature 36.8 C (98.2 F) 12/11/2017 2:55 PM PUBLIC HEALTH REPRESENTATIVE Respiratory Rate - - Oxygen Saturation 97% 12/11/2017 2:55 PM PUBLIC HEALTH REPRESENTATIVE Inhaled Oxygen Concentration - - Weight - [...] Insurance MEDICAID [employer] Care Teams Sign Maker Relationship Specialty Start Date End Date Nikolay Gama MD [address] [place] [address] PCP - General Geriatric Medicine 11/13/17
--- OUTSIDE RECORDS SUMMARY | 2024-06-09 03:10 | XMS_ITS | Continuity of Care Document ---
Author Organization [facility] Address [address] [place] [address] Phone Care Team Providers Care Surgical Assistant Name Role Phone Alan De La O MD Unavailable Unavailable Allergies, Adverse Reactions, Alerts Substance Reaction Status Criticality No Known Allergies Active No Inform ation Medications Medication Instructions Dosage Effective Dates (start - stop) Status Comments Robaxin-750 750 mg tablet take 1 tablet by oral route every 6 hours as needed 750 MG - Active PRN for pain, avoid driving or operate machines [place] 5 mg-325 mg tablet take 1 tablet by oral route 2 times every day as needed for pain 1 tablet - Active avoid driving or operate machines buspirone 10 mg tablet take 1 tablet by oral route 2 times every day 10 MG - Active avoid driving or operate machines Wellbutrin XL 150 mg 24 hr tablet, extended release take 1 tablet by oral route every morning 150 MG - Active Procedures Procedure Date PREV VISIT, NEW, AGE 40-64 Advance Directives Directive Yes / No Effective Date File Name No Information Encounters Encounter Description Practice Location Reason(s) For Visit Diagnoses Date Provider Providers Copied on Encounter PREV VISIT, NEW, AGE 40-64 [facility], [address] [place], [id number], [place] tel:[phone] [facility] Medicine PHysical (chief complaint) Dietary surveillance and counselingRoutine medical exam 5 Jairon Phillips. [address], [address] [place], [id number] , [place]. tel:[phone] Referring Provider: Alan De La O, [address], [place], [place], [id number]. tel:[phone] Family History Family Member Type Diagnosis Age At Onset Father Problem (finding) lung CA Brother Problem (finding) Alive and well Mother Problem (finding) bipolar Payers Payer name Insurance type Covered republican ID Authoriza tion(s) No Information Social History Type Description Quantity Date Captured Comments Alcohol Use Details No Caffeine Use Details Unknown Tobacco Use Status Moderate cigarette smoker (10-19 cigs/day) Smoking Status Heavy tobacco smoker Smoking Tobacco Use Details Cigarette: No Details Available Cigarette: 10 Cigarettes per day Sex Female Vital Signs Date / Time: Height Weight BMI Pulse Rate Blood Pressure Temperature Respiratory Rate Body Surface Area Head Circumference BMI percentile Pulse Ox Inhaled Ox 3:14 PM 67.00 in 220.00 lbs 34.4 6 kg/m eter (2) 103 /min 135/93 mm[Hg] 97.8 F 16 /min Chief Complaint And Reason For Visit From encounter dated '10/02/2014 14:00'. PHysical (chief complaint). Description: Pt needs annual physical. pt is crying and very emotional due to chronic pain and nerve issue. 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 Pt states that she is tired of pain all the time. Pt also has severe nerve problem and anxiety. Pt feels depressed. Pt denies any suicidal thought. Pt has SOb sometimes. Pt denies any chest pain or SOB. Pt states that she has asthma. No acutesob Plan Of Treatment Date Type Action Status Referral Ordered: MRI LUMBAR SPINE W/O DYE ordered History Of Present Illness Encounter Date Complaint History Of Prese nt Illness PHysical Pt needs annual physical. pt is crying and very emotional due to chronic pain and nerve issue. 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 Pt states that she is tired of pain all the time. Pt also has severe nerve problem and anxiety. Pt feels depressed. Pt denies any suicidal thought. Pt has SOb sometimes. Pt denies any chest pain or SOB. Pt states that she has asthma. No acute sob Instructions Date Instruction Additional Infor mation Prescribed Activity and Exercise Education Related to Dietary Surveillance and Counseling Prescribed Diet Educ ation/Lifestyle Education Regarding Diet Related to Dietary Surveillance and Counseling Assessments Type Assessment Date assessment Dietary surveillance and admissions counselor ing assessment Routine medical exam Mental Status Date Cognitive Assessment Orientation - Aylett ed to time, place, person, situation.
--- OUTSIDE RECORDS SUMMARY | 2024-06-09 03:10 | XMS_ITS | Clinical Summary ---
Author Organization [facility] Address [address] [place] [address] Care Team Providers Care Training Generalist Name Role Phone Nikolay Gama MD Primary Care Provider [phone] Source Comments [facility],non-owned Affiliates and Associated Physician Practices is amultiple site organization consisting of ambulatory clinics and hospital sitesin [place], [place], [place] and [place]. This disclosure is being madepursuant to the Care Everywhere program and may not contain all information available regarding this patient. 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
--- OUTSIDE RECORDS SUMMARY | 2024-06-09 03:10 | XMS_ITS | CONTINUITY OF CARE DOCUMENT ---
Author Name sera zamora Address Unknown Organization [facility] Address [address] [place] [address] Phone [phone] Care Team Providers Care Credit Verification Clerk Name Role Phone Clinton BLAKELY, Mango Unavailable OZIEL EDUARDO MD Unavailable [phone] OZIEL EDUARDO MD Unavailable [phone] PROBLEMS Condition Status Date Provider Notes SHORTNESS [...] In-person encounter Office Visit Mango Alonzo MD [facility] - In-person encounter Office Visit Mango Alonzo MD [facility] CHEST PAIN-TYPE TO BE DETERMINEDOBESITYSHORTNESS OF [...] Range Interpretation Location platelet count 234 10*3/mm3 [facility] hematocrit, blood 37.0 % [facility] triglyceride, serum, fasting 328 mg/dL [facility] HDL cholesterol, serum 33 mg/dL [facility] lipoprotein, beta, serum, point, quantitative, calculated 57 mg/dL [facility] cholesterol, serum 156 mg/dL [facility] international normalized ratio (INR) 1.0 [facility] thyroid stimulating hormone, serum 0.528 u[IU]/mL [facility] alanine aminotransferase (SGPT), serum 32 1/L [facility] aspartate aminotransferase (SGOT), serum 22 1/L [facility] creatinine, serum 0.77 mg/dL [facility] potassium, serum 4.3 mmol/L [facility] sodium, serum 137 mmol/L [facility] HISTORY OF MEDICATION USE Medication Status Instructions [...] Policy type / Coverage type Rita red democrat [employer]ZZ MEDICAID (2) Medicaid [id number] TREATMENT PLAN Date Name Cardiac Cath - L/R - GC TSH, 3RD GENERATION W/REFLEX TO FT4 HEMOGLOBIN A1c PROTHROMBIN TIME WIT H INR CBC (H/H, RBC, INDIC ES, WBC, PLT) LIPID PANEL COMPREHENSIVE METABO LIC PANEL W/EGFR Full PFT Complete Echo HISTORY OF PROCEDURES Procedure Date Procedure Name Provider Procedure Notes S tatus EDITH Alonzo MD complet ed DLCO - 65639 Mango Alonzo MD compl eted FRC - 37624 Mango Alonzo MD comple cony FVC - 26426 Mango Alonzo MD comple cony EDITH Alonzo MD complet ed
--- NOTE | 2024-06-09 04:17 | ED_ITS ---
HPI - General Adult General Chief complaint: Chest Pain Stated complaint: chest pains, COPD, liver problems, everything Time Seen by Provider: 06/09/24 02:52 History of Present Illness HPI narrative: Patient 54-year-old female who presents emergency department with chief complaint abdominal pain patient reports that she also has been having chest pain reports that she has history of hepatitis-C and reports he has both a see a liver specialist the patient states that patient reports that she has history of heavy alcoholism and reports that she has not drank in about 3 months Related Data Allergies Allergy/AdvReac Type Severity Reaction Status Date / Time No Known Allergies Allergy Verified 06/09/24 00:04 Review of Systems 2 Review of Systems: A 10 system review of systems was completed on the patient and is negative except for what is stated in the HPI. Nursing and ancillary documentation was reviewed. Exam 2 Narrative: GENERAL: Well-appearing, well-nourished, and in no acute distress. HEAD: Normocephalic, atraumatic. EYES: PERRLA and EOMI. ENT: Nares clear, no rhinorrhea or epistaxis. Mucous membranes moist. NECK: Supple. CHEST: Clear to auscultation. No respiratory distress. HEART: Regular rate and rhythm. No murmur heard. Normal peripheral pulses. ABDOMEN: Soft, nontender, nondistended, normal active bowel sounds. EXTREMITIES: Normal range of motion. No edema. SKIN: Warm, dry, no rash. NEURO: No focal deficits. Alert and oriented x3. PSYCH: Normal mood and affect. Course Vital Signs Vital signs: Vital Signs Temperature 36.1 C L 06/09/24 00:05 Pulse Rate 108 H 06/09/24 00:05 Respiratory Rate 18 06/09/24 00:05 Blood Pressure 147/89 H 06/09/24 00:05 Pulse Oximetry 95 06/09/24 00:05 Oxygen Delivery Room Air 06/09/24 00:05 Temperature 36.1 C L 06/09/24 00:05 Pulse Rate 82 06/09/24 04:15 Respiratory Rate 18 06/09/24 04:15 Blood Pressure 138/84 06/09/24 04:15 Pulse Oximetry 96 06/09/24 04:46 Oxygen Delivery Room Air 06/09/24 04:46 Medical Decision Making [facility] Narrative Medical decision making narrative: Differential diagnosis includes PE, intra-abdominal infection, hepatic failure, UTI, pneumonia, ACS Initial troponin was -3 hour delta troponin was negative urinalysis was negative CMP showed a normal bilirubin CBC was within normal limits hemoglobin was 14.5 coags were normal CTA chest showed no evidence of PE CT abdomen pelvis showed no acute abnormality Vital Signs Vital Signs: Vital Signs Temperature 36.1 C L 06/09/24 00:05 Pulse Rate 108 H 06/09/24 00:05 Respiratory Rate 18 06/09/24 00:05 Blood Pressure 147/89 H 06/09/24 00:05 Pulse Oximetry 95 06/09/24 00:05 Oxygen Delivery Room Air 06/09/24 00:05 Temperature 36.1 C L 06/09/24 00:05 Pulse Rate 82 06/09/24 04:15 Respiratory Rate 18 06/09/24 04:15 Blood Pressure 138/84 06/09/24 04:15 Pulse Oximetry 96 06/09/24 04:46 Oxygen Delivery Room Air 06/09/24 04:46 Lab Data 06/09/24 00:18 06/09/24 00:18 Labs: Lab Results 06/09/24 06/09/24 06/09/24 Range/Units 00:18 04:26 04:35 WBC 9.7 (4.5-10.0) K/mm3 RBC 5.37 (4.2-5.4) M/mm3 Hgb 14.5 (12.0-15.0) g/dL Hct 46.5 (37.0-47.0) % MCV 86.6 (80-100) fl MCH 27.0 (26-34) pg MCHC 31.2 L (32-36) g/dl RDW 12.7 (11.5-14.5) % Plt Count 276 (150-375) k/mm3 MPV 9.5 (7.4-10.4) fl Immature Gran % (Auto) 0.5 (0-0.5) % Neut % (Auto) 60.4 (45.5-73.1) % Lymph % (Auto) 27.4 (18.3-44.2) % Randall % (Auto) 8.0 (2.6-8.5) % Eos % (Auto) 3.2 (0-4.4) % Baso % (Auto) 0.5 (0.2-1.2) % Lymph # (Auto) 2.66 (0.9-3.2) K/mm3 Randall # (Auto) 0.8 H (0.1-0.6) K/mm3 Eos # (Auto) 0.3 (0-0.3) K/mm3 Baso # (Auto) 0.1 (0.0-0.1) K/mm3 Abs Immat Gran (auto) 0.05 H (0.00-0.031) K/mm3 Absolute Neuts (auto) 5.9 (1.3-6.7) K/mm3 Absolute Nucleated RBC 0.000 (0.0-0.012) K/mm3 Nucleated RBC % 0.0 (0.0-0.2) % PT 12.9 (11.1-14.7) Seconds INR 1.0 APTT 30.0 (22.3-36.8) Seconds Sodium 138 (137-145) mmol/L Potassium 4.9 (3.4-5.0) mmol/L Chloride 101 (98-107) mmol/L Carbon Dioxide 26 (22-30) mmol/L Anion Gap 11 (4-12) mmol/L BUN 37 H D (7-17) mg/dL Creatinine 0.80 (0.7-1.0) mg/dL Estim Creat Clear Calc 85 ml/min Estimated GFR > 60 (59 - ) Glucose 110 (65-110) mg/dL Calcium 9.9 (8.4-10.2) mg/dL Total Bilirubin 0.3 (0.2-1.3) mg/dL AST 34 (14-36) U/L ALT 52 H (6-35) U/L Alkaline Phosphatase 99 (38-126) U/L Troponin I < 0.012 < 0.012 (0.000-0.034) ng/mL Total Protein 9.0 H (6.3-8.2) g/dL Albumin 4.8 (3.5-5.1) g/dL Lipase 130 (23-300) U/L Urine Color Yellow (Yellow) Urine Appearance Clear (Clear) Urine pH 5.5 (5.0-9.0) Ur Specific [place] 1.019 (1.001-1.035) Urine Protein Negative (Negative) mg/dL Urine Glucose (UA) Negative (Negative) mg/dL Urine Ketones Negative (Negative) mg/dL Ur Blood (Man) Negative (Negative) Urine Nitrate Negative (Negative) Urine Bilirubin Negative (Negative) Urine Urobilinogen 0.2 (<2.0) mg/dL Leukocyte Esterase Rfl Negative (Negative) THUAN/UL Discharge Plan Discharge Clinical Impression: Atypical chest pain, Abdominal pain Patient Disposition: Home Condition: Stable Instructions: Antibiotic Form, Chest Pain (ED), Abdominal Pain (ED) Patient Language: Yakut Prescriptions: No Action clindamycin HCl 300 mg capsule 300 mg PO Q8H Qty: 30 0RF naproxen [Naprosyn] 500 mg tablet 500 mg PO BID Qty: 20 0RF Follow-up/Referrals: Paulo Lyons MD [Primary Care Provider] - Time of Disposition: 06:11
[2024-06-09 04:41] LABS: Add Urine Microscopic? NO; Appearance Urine Clear (Clear); Bilirubin Urine Negative (Negative); Blood Urine Negative (Negative); Color Urine Yellow (Yellow); Glucose Urine UA Negative (Negative); Ketones Urine Negative (Negative); Leukocyte Esterase Ur Negative LEU/UL (Negative); Nitrate Urine Negative (Negative); Protein Urine Negative (Negative); Specific Grav Ur 1.019 (1.001-1.035); Urobilinogen Urine 0.2 mg/dL (<2.0); pH Urine 5.5 (5.0-9.0)
[2024-06-09 04:53] LABS: Troponin I < 0.012 ng/mL (0.000-0.034)
== END 2024-06-09 06:36 | disposition home or self-care (01) ==
PROVIDERS: Emergency Provider Emergency Medicine; PCP Internal Medicine
DX: R07.89 Other chest pain (principal); R10.9 Unspecified abdominal pain; B19.20 Unspecified viral hepatitis C without hepatic coma
CPT/HCPCS: 36415; 71046; 71275; 74177; 80053; 81003; 83690; 84484; 85025; 85610; 85730; 93005; 99284; Q9967